=== PATIENT | female | born 1975 | race Caucasian/White ===

== ENCOUNTER 2017-08-09 19:19 | Emergency (ER) | payer MEDICAID ==
[~2017-08-09] VITALS: Ht 167.6 cm; Wt 117.9 kg
[~2017-08-09 19:19] MED LIST: CARVEDILOL 25MG25 MG PO; CELEXA40 MG PO; CLONAZEPAM 1MG T1 MG PO; FLOVENT 11110 MCG/PU IH; GABAPENTIN 600600 MG PO; LIPITOR80 MG PO; LOFIBRA160 MG PO; MELOXICAM7.5 MG PO; METOPROLOL25 MG PO; OXYCODONE HCL10 M1 PO; PERCOCET 5/3251 EACH PO; PROAIR HFA0.09 MG/AC IH; SINGULAIR10 MG PO; WELLBUTRIN XL300 MG PO; ZANAFLEX4 MG NG; ZESTORETIC 12.51 TAB PO; ZOCOR40 MG PO
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
--- OUTSIDE RECORDS SUMMARY | 2017-08-09 19:47 | External Medical Summary Rpt | CCD ---
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
--- OUTSIDE RECORDS SUMMARY | 2017-08-09 19:47 | External Medical Summary Rpt | CCD ---
Author Author [employer] Organization [employer] Address Unknown Phone Unavailable Purpose Continuity of Care Document - through 2016
--- OUTSIDE RECORDS SUMMARY | 2017-08-09 19:48 | External Medical Summary Rpt | CCD ---
Demographics Preferred Language Romanian Marital Status Unknown Oriental Orthodox Affiliation Unknown Race Unknown Ethnic Group Unknown Author Author , GRAYSON SALMERON Address Unknown Phone Immunization No patient found.
--- OUTSIDE RECORDS SUMMARY | 2017-08-09 19:48 | External Medical Summary Rpt | CCD ---
Demographics Preferred Language Frisian Marital Status Unknown Hinduism Affiliation Unknown Race Unknown Ethnic Group Unknown Author Author , GRAYSON SALMERON Address Unknown Phone Immunization No patient found.
--- NOTE | 2017-08-09 20:38 | Urgent Treatment Center Report ---
History of Present Issue Date/Time Seen by Provider 08/09/172036 Visit Reason Pt arrived:Walked Presenting Problem:BACK PAIN, LEG PAIN, FEET SWELLING/PAIN Location if Accident: Onset of symptoms date/time:08/05/17/ or onset unknown for:MEDICAL HX UNKNOWN Have you (or family members/close friends) recently traveled outside the [place]? N If Yes, where/when: Have you had exposure to infectious disease within the past month? TB? Other? Specify: Pt was initially triaged for decision. RN was unsure where to send pt but because no new symptoms, sent pt to [facility]. Pt waited to be seen. c/o bilateral LE swelling w/ left foot now starting to turn red last 2 days. Reports 10 pound weight gain in the last week. SOA at baseline x months. Denies chest pain but chest pressure slowly increasing x weeks. Saw PCP in [place] ( office of Jayla Winston but not Jayla) on day before yesterday for exact symptoms. No access to those records. Reports she was told she had Coronary Heart Disease but was not prescribed medications. Instead, she returned today for ordered labs there in the office. No access to those results. Here today because she was told if no better or worse to report to ER. Aware she is not in the ER but reports when asked where she wanted to be seen, she left it up to the nurse. "I basically want to know if I am going to wake up tomorrow. How bad is this?" Source patient Exam Limitations no limitations ALLERGIES Coded Allergies: levofloxacin (From LEVAQUIN) (09/03/15) Home Medications Active Scripts OXYCODONE HCL (Oxycodone HCl) 10 MG PO 5XDAY PRN PAIN #150 TAB Prov: 10/28/15 Reported Medications Albuterol Sulfate (Proair Hfa) 1 PUFF IH Q4HP PRN ASTHMA Meloxicam (Meloxicam 7.5MG) 15 MG PO DAILY Clonazepam (Clonazepam 1MG) 1 MG PO TID CITALOPRAM HYDROBROMIDE (Citalopram HBr) 40 MG PO DAILY Fenofibrate (Lofibra) 160 MG PO DAILY Montelukast Sodium (Singulair) 10 MG PO QHS LISINOPRIL/HYDROCHLOROTHIAZIDE (Prinzide 10-12.5 MG Tablet) 1 TAB PO BID Carvedilol (Carvedilol 25MG) 25 MG PO BID Gabapentin (Gabapentin 600MG) 600 MG PO Q8 FLUTICASONE PROP (Flovent 110) 1 PUFF IH BID BUPROPION HCL (Wellbutrin XL 300MG) 300 MG PO DAILY TIZANIDINE HCL (Zanaflex) 4 MG NG Q8 History Medical History General CAD? No Angina: Yes NM: No Hypertension? Yes Hyperlipidemia? Yes CHF? No COPD? Yes Asthma? Yes Anemia? No Hernia? No Thyroid Problems? No Hypothyroidism? No CVA? No Seizures? No Diabetes? No UTI? No Stones? No GB Disease: No Nephritic Syndrome? No Asplenia? No Hepatitis? No Sickle Cell Disease? No Arthritis? Yes Cataracts? No Glaucoma? No MRSA? No TB? No Cancer? No Immunization HX DT/Tetanus Unknown Surgical Hx Previous Surgery?Y LEFT KNEE REPLACEMENT Social History Smoking Hx Smoker: Current Every Day Smoker Tobacco: Yes Type Cigarettes Packs/day 1 1/2 - 2 Packs Alcohol Alcohol: No Review of Systems All Other Systems Reviewed and Negative Constitutional see HPI, denies fever, denies malaise, weakness Eyes denies drainage ENT denies: ear pain, nose discharge, nose congestion, throat pain, throat swelling. Respiratory see HPI, denies cough, denies wheezing Cardiovascular see HPI, denies palpitations Gastrointestinal denies no symptoms reported Genitourinary denies: dysuria, frequency. Musculoskeletal back pain ("radiating from my legs"), other (richard feet and lower leg pain) Skin see HPI, denies lesions Psychiatric/Neurological anxiety (hx of panic attacks), denies headache, denies numbness, denies tingling , other ("more forgetful since Sat") Physical Exam Vital Signs Vital Signs Date Time Temp Pulse Resp B/P Pulse O2 O2 Flow FiO2 Ox Delivery Rate 08/09 2018 98.2 102 18 132/86 95 08/09 1924 98.2 102 18 132/86 95 General Appearance no apparent distress, obese Neck non-tender, supple Respiratory Status Yes: trachea midline, chest symmetrical. No: respiratory distress, use of accessory muscles, pain on inspiration, pain on expiration, productive cough, non productive cough. Lung Sounds anterior: lungs clear. posterior: lungs clear. bilateral: lungs clear. Cardiovascular regular rate/rhythm, no peripheral edema, no murmur, 3+ edema right foot/lower leg; 4+ left foot/lower leg Peripheral Pulses Comment unable to palpate due to significant edema Extremities ttp richard feet, ankles, lower legs Neurologic alert, oriented x 3 Mental status tearful Skin intact, warm/dry, mild redness top left foot Medical Decision Making LABS/Meds/Orders Pt receiving controlled substance in ED? No Progress [facility] Progress Notes Date 08/09/17 Time 2048 Comment Report called to JENNIFER Perry RN. Room 6 available. Departure Departure Time of Disposition 2048 Disposition Still a Patient Clinical Impression Primary Impression: Bilateral lower extremity edema Condition STABLE at 205
[2017-08-09 21:24] LABS: LYMPH # 3.1 K/mm3 (0.7-4.5); LYMPH % 33.9 % (10-50.0)
[2017-08-09 21:27] LABS: HEMOGLOBIN 11.7 g/dL (12.2-16.2)
[2017-08-09 22:00] LABS: BUN 11 mg/dL (7-18)
[2017-08-09 22:02] LABS: GFR (ESTIMATED) 78 ML/MIN (59-)
--- NOTE | 2017-08-09 23:10 | Emergency Room Report ---
History of Present Illness Time Seen by 2054 Presenting Problem in Triage Pt arrived:Walked Presenting Problem:BACK PAIN, LEG PAIN, FEET SWELLING/PAIN. PT ADVISES THAT SHE WAS DX WITH CHF LAST WEEK AND IS STILL SOA AND NOT FEELING ANY BETTER. 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 N Clinical Suspician of Infection? N Mental Status: 1 - Regular (Normal Baseline) Sepsis Risk:Low Sepsis Risk Have you (or family members/close friends) recently traveled outside the [place]? N If Yes, where/when: Have you had exposure to infectious disease within the past month? N TB? Other? Specify: Source patient, RN notes reviewed, family, old records Exam Limitations no limitations Comment wf who has ongoing lower ext edema with feeling of sob - pt with no chest pain or arrthymia - pt with pending appt with card Cardiac Chest Pain Chest pain indicative of cardiac No Timing/Duration this evening Severity moderate ALLERGIES Coded Allergies: levofloxacin (From LEVAQUIN) (09/03/15) Home Medications Active Scripts OXYCODONE HCL (Oxycodone HCl) 10 MG PO 5XDAY PRN PAIN #150 TAB Prov: 10/28/15 Reported Medications Albuterol Sulfate (Proair Hfa) 1 PUFF IH Q4HP PRN ASTHMA Meloxicam (Meloxicam 7.5MG) 15 MG PO DAILY Clonazepam (Clonazepam 1MG) 1 MG PO TID CITALOPRAM HYDROBROMIDE (Citalopram HBr) 40 MG PO DAILY Fenofibrate (Lofibra) 160 MG PO DAILY Montelukast Sodium (Singulair) 10 MG PO QHS LISINOPRIL/HYDROCHLOROTHIAZIDE (Prinzide 10-12.5 MG Tablet) 1 TAB PO BID Carvedilol (Carvedilol 25MG) 25 MG PO BID Gabapentin (Gabapentin 600MG) 600 MG PO Q8 FLUTICASONE PROP (Flovent 110) 1 PUFF IH BID BUPROPION HCL (Wellbutrin XL 300MG) 300 MG PO DAILY TIZANIDINE HCL (Zanaflex) 4 MG NG Q8 History Medical History General CAD? No Angina: Yes GA: No Hypertension? Yes Hyperlipidemia? Yes CHF? Yes DVT? No PE? No COPD? Yes Asthma? Yes Anemia? No GERD? No Gastric ulcers? No GI Bleed? No Hernia? No Thyroid Problems? No Hypothyroidism? No CVA? No Seizures? No Diabetes? No End Stage Renal Disease? No UTI? No Stones? No BPH? No GB Disease: No Nephritic Syndrome? No Asplenia? No Hepatitis? No Sickle Cell Disease? No Arthritis? Yes Migraines? No Cataracts? No Glaucoma? No MRSA? No HIV? No TB? No Anxiety? No Depression? No Cancer? No More? No Immunization Hx DT/Tetanus Unknown Surgical Hx Previous Surgery?Y LEFT KNEE REPLACEMENT P[employer]ER [employer]DER Hx LMP N/A Social History Smoking Hx Smoker: Current Every Day Smoker Tobacco: Yes Type Cigarettes Packs/day 1 1/2 - 2 Packs Alcohol Alcohol: No Drugs none Review of Systems All Other Systems Reviewed and Negative Constitutional denies fever Eyes denies drainage ENT denies: ear discharge, epistaxis, throat pain. Respiratory see HPI, denies cough, shortness of breath, denies wheezing Cardiovascular see HPI, denies chest pain, denies palpitations, denies syncope, other Gastrointestinal denies abdominal pain, denies nausea, denies vomiting Genitourinary denies: dysuria, frequency, hesitancy, hematuria. Musculoskeletal denies back pain, denies joint pain, denies joint swelling, denies neck pain Skin denies rash Psychiatric/Neurological denies headache, denies seizure Physical Exam Vital Signs Vital Signs Date Time Temp Pulse Resp B/P Pulse O2 O2 Flow FiO2 Ox Delivery Rate 08/09 2300 82 18 115/76 93 08/09 2052 98.2 102 18 132/86 95 08/09 2018 98.2 102 18 132/86 95 08/09 1924 98.2 102 18 132/86 95 - WBC >12,000 or <4,000 or 10% bands? 2 or more SIRS Criteria Met? B/P:115/76 MAP:101 Creatinine >2.0? UA output<0.5ml/kg/hr for 2 hrs? Platelet count >100,000? Lactate >2.0mmol/1? INR >1.2 or PTT > than 60 sec? Evidence of Organ Dysfunction? Provider documented clinical suspician of infection? N Sepsis Criteria Count: 1 Sepsis Risk: Low Sepsis Risk General Appearance no apparent distress Eye Exam - bilateral eye PERRL, bilateral eye EOMI Ear, Nose, Throat normal ENT inspection Neck supple, no def jvd Respiratory Status No: respiratory distress. Lung Sounds bilateral: crackles. 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 No Results/Orders Laboratory Tests 08/09/172109: TSH 3.76 H, Thyroxine (T4) 7.4 08/09/172109: Sodium 141, Potassium 4.1, Chloride 104, Carbon Dioxide 29, BUN 11, Creatinine 0.8, Estimated Creat Clear 167, Estimated GFR (MDRD) 78, Glucose 114 H, Calcium 8.6, Total Bilirubin 0.3, AST 29, ALT 24, Alkaline Phosphatase 94, Creatine Kinase 492 H, CK-MB (CK-2) Rel Index 0.6, CK and CKMB Interp 3.1, Troponin I < 0.02, B-Natriuretic Peptide 71, Total Protein 7.1, Albumin 3.5, Globulin 3.6 H, Albumin/Globulin Ratio 1.0 L, WBC 9.0, RBC 4.09 L, Hgb 11.7 L, Hct 36.3 L, MCV 88.8, RDW 14.0, Plt Count 227, MPV 8.7, Gran % 57.2, Gran # 5.2, Lymphocytes % 33.9, Monocytes % 5.5, Eosinophils % 2.6, Basophils % 0.8, Lymphocytes # 3.1, Monocytes # 0.5, Eosinophils # 0.2, Basophils # 0.1, PUBS MCHC 32.6, MCH 29.0 Current Medication Orders Sig/Karina Start time Last Medication Dose Route Stop Time Status Admin Furosemide 0 .STK-MED ONE 08/09 2227 DC .ROUTE Furosemide 40 MG ONCE ONE 08/09 2215 DC 08/09 IV 08/09 Sodium Chloride 10 ML PRN PRN 08/09 2100 AC 08/09 IV 08/10 Orders Procedure Date/time Status THYROID STIMULATING HORMONE 08/09 2116 Complete THYROXINE (T4) 08/09 2116 Complete ELECTROCARDIOGRAM REQUEST 08/09 2056 Active CHEST(2 VIEWS-NOT PORTABLE) 08/09 2056 Active IV SALINE LOCK 08/09 2056 Active CBC WITH AUTO DIFF 08/09 2056 Complete CARDIAC ENZYMES 08/09 2056 Complete CHEM 12 PROFILE 08/09 2056 Complete BRAIN NATRIURETIC PEPTIDE 08/09 2056 Complete CM/EKG CM/roofing foreman Rhythm Normal Sinus Rhythm EKG non-spec. ST/Twave chgs XRAY/CT/US XRAY/CT/US XRAY chest XR interpretation by reviewed by me Xray Results abnormal (vascular congestion) Departure Departure Time of Disposition 2305 Disposition DC Home or Self Care(routine) Clinical Impression Primary Impression: Bilateral lower extremity edema Secondary Impressions: CHF (congestive heart failure) Qualifiers: Congestive heart failure type: unspecified congestive heart failure type Congestive heart failure chronicity: unspecified congestive heart failure chronicity Qualified Code: I50.9 - Heart failure, unspecified Condition STABLE Referrals ERICKA REYES APRN (Family) Patient Instructions DI for Peripheral Edema -- Bilateral Additional Instructions see dr shepard in am about 9 am Discharge Counseling Counseled pt/family regarding diagnosis, test results, medications/RX, follow up needs ED Critical Care Critical Care No at 2309
[2017-08-09 23:18] VITALS: BP 94/35
--- NOTE | 2017-08-10 04:48 | RADIOLOGY REPORT PS360 ---
CHEST(2 VIEWS-NOT PORTABLE) HISTORY: Shortness of air and chest pressure RECENT CHF DX; CHEST PRESSURE; SOA ORDERING PHYSICIAN: Tracy Salgado MD PATIENT AGE: 42 years COMPARISON: None available FINDINGS: The cardiomediastinal silhouette and pulmonary vascularity are within normal limits. The lungs are clear without infiltrates, suspicious nodules, or pleural effusions. No acute bony abnormalities. IMPRESSION: Negative chest, no acute finding
== END 2017-08-09 23:20 | disposition home or self-care (01) ==
LOC: ER 19:19 → UTC 19:40 → ER 23:20
PROVIDERS: Emergency Medicine
DX: R60.0 Localized edema (principal); I50.9 Heart failure, unspecified; I10 Essential (primary) hypertension; E78.5 Hyperlipidemia, unspecified; J44.9 Chronic obstructive pulmonary disease, unspecified; F17.210 Nicotine dependence, cigarettes, uncomplicated

== ENCOUNTER → 2017-08-31 | Outpatient (CLI) | payer MEDICAID ==
--- NOTE | 2017-08-31 21:06 | RADIOLOGY REPORT PS360 ---
PROCEDURE: 2-D M-mode and color Doppler study INDICATIONS FOR THE TEST: Chest pain COPD+ Heart Murmur Tobacco Smoking+ Palpitations+ Fatigue Syncope+ Edema+ Hypertension+Diabetes Mellitus Rheumatic Fever SOB AVILA+Obesity+Hyperlipidemia+ Family History HD+ Additional History asthma PATIENT INFORMATION HEIGHT: 66 WEIGHT: 248 GENDER: Female B/P: 135/80 2-D/M-MODE INTERPRETATION: 2-D MEASUREMENTS OBSERVED VALUES IN CMS Right Ventricular Dimension (RVDd) 2.8 Interventricular Septum (Thickness)(IVsd) 1.4 Left Ventricular Internal Dimensions(LVIDd) 3.9 Left Ventricular Posterior Wall (Thickness)(LVPWd) 1.4 Aortic Root 2.4 Aortic Cusp Separation 2.0 Left Atrial Dimensions (LAD) 3.5 2D 1. Left atrium is qualitatively mildly enlarged, left ventricle is normal size, there is mild concentric left ventricular hypertrophy, visually estimated ejection fraction 55% with no obvious regional wall motion abnormality. 2. The right atrium is normal size, right ventricle is mildly enlarged with normal contractility. 3. The aortic valve is minimally thickened and fibrosed. 4. The mitral and tricuspid valve are structurally normal. 5. The pulmonic valve is poorly visualized 6. No significant pericardial effusion noted. DOPPLER INTERROGATION: Doppler interrogation of the aortic, mitral and tricuspid valvular presence of mild mitral and tricuspid regurgitation, tricuspid regurgitant jet velocity insufficient for calculation of the right ventricular systolic pressure, grade 1 diastolic dysfunction seen with tissue Doppler evidence of raised left atrial pressure. CONCLUSION: 1. Mildly enlarged left atrium, normal left ventricular size, mild concentric left ventricular hypertrophy, visually estimated ejection fraction 55% with no obvious regional wall motion abnormality, grade 1 diastolic dysfunction seen with tissue Doppler evidence of raised left atrial pressure. 2. Mildly enlarged right ventricle with normal contractility. 3. Mild mitral and tricuspid regurgitation 4. No significant pericardial effusion noted.
== END ==
LOC: RT 08-26 13:45
DX: I13.10 Hypertensive heart and chronic kidney disease without heart failure, with stage 1 through stage 4 chronic kidney disease, or unspecified chronic kidney disease (principal)